=== PATIENT | male | born 1965 | race Caucasian/White ===

== ENCOUNTER → 2021-07-21 | Outpatient (CLI) | payer BC | LOC: RAD 10:19 | DX: R01.1 Cardiac murmur, unspecified (principal) ==

== ENCOUNTER → 2024-06-28 | Outpatient (CLI) | payer OTHER | LOC: RAD 14:30 | DX: M17.11 Unilateral primary osteoarthritis, right knee (principal); S70.351A Superficial foreign body, right thigh, initial encounter; X58.XXXA Exposure to other specified factors, initial encounter ==